=== PATIENT | female | born 1965 | race African-American/Black ===

== ENCOUNTER 2017-02-06 09:57 | Day surgery (SDC) | payer OTHER ==
[2017-02-06] MEDS ORDERED: Lidocaine 2% 5 ML SDV ONE (12:01)
[2017-02-06] MEDS ORDERED: Ropivacaine 0.5% 5 MG/ML 30 ML SDV ONE (12:01)
[2017-02-06] MEDS ORDERED: Betamethasone Acetate/Betamethasone Sod Phosphate 30 MG/5 ML MDV ONE (12:01)
[2017-02-06] MEDS ORDERED: Iopamidol 408 MG/ML 50 ML SDV ONE (12:02)
--- NOTE | 2017-02-06 17:53 | OR ---
SURGEON: Angelica Porter D.O. DATE OF PROCEDURE: 02/06/2017 OR STAFF: 1. Radha Gonzales RN. 2. Airel Park RN. 3. Mario Blankenship RT. WOUND CLASSIFICATION: I. PREOPERATIVE DIAGNOSES: 1. Chronic low back pain. 2. Degenerative disk disease. 3. Lumbar spondylosis. POSTOPERATIVE DIAGNOSES: 1. Chronic low back pain. 2. Degenerative disk disease. 3. Lumbar spondylosis. PROCEDURE PERFORMED: 1. Caudal epidural steroid injection. 2. Fluoroscopic guidance for needle placement. 3. Local with oral Valium for sedation. SCREENING QUESTIONS: The patient answered "no" to all of the following questions: 1. Are you allergic to latex? 2. Do you have a bleeding disorder? 3. Do you have any current local or systemic infections? 4. Are you taking any anti-inflammatories or blood thinners? 5. Do you have any joint replacements, heart valve replacements, or a pacemaker? DESCRIPTION OF PROCEDURE: The patient had the procedure thoroughly explained including all possible risks, benefits and alternatives. Consent was signed in my clinic indicating understanding and willingness to proceed. The patient presented to [facility] and was escorted to the dressing room to disrobe and change into a hospital gown. Preoperative vital signs were taken and stable. The patient reported that Valium was taken prior to the procedure. The patient was brought back to the procedure room and placed in the prone position on the procedure room table. A pillow was placed under the hips in order to flatten the lumbar lordosis. The back was prepped with ChloraPrep and sterilely draped. All personnel in the operating room were dressed in appropriate attire including surgical scrubs, head and shoe covers. This was to ensure sterility while in the treatment room. During the time fluoroscopy was in use, all personnel in the operating room wore lead powell with thyroid collars. Sterile technique was used throughout the procedure. The patient was awake and conversant throughout the procedure. There was no evidence of infection at the site of needle insertion. Skeletal landmarks were identified under fluoroscopy for the caudal epidural. Skin was anesthetized with 2% lidocaine with a sterile 27-gauge 1.5 inch needle. Then a 20-gauge Tuohy epidural needle was placed in the epidural space with loss of resistance technique under fluoroscopic guidance. No heme, cerebrospinal fluid, or paresthesias were noted. Isovue-200 contrast dye was injected in 0.2 cubic centimeter increments and seen to outline the epidural space in both AP and lateral views. There was no intravascular flow pattern observed under live fluoroscopy. Then 12 milligrams of Celestone was slowly injected after negative aspiration. The patient tolerated the procedure well. Vital signs were stable during and after the procedure. The staff escorted the patient to the recovery area and the patient was released in stable condition after a brief stay in the recovery room monitored by the nurse. The patient was given both oral and written discharge and follow up instructions with recommendation to follow up given for 2-3 weeks. The patient voiced understanding including understanding of those signs and symptoms that would require emergency care. The patient knows how to contact the office if there are any additional problems or questions in the meantime. PREOPERATIVE PAIN: 3 to 8/10 , at rest versus doing activities POSTOPERATIVE PAIN: 0/10. FOLLOWUP: Follow up in the pain clinic in 3 weeks. RON / SJ /[id number] ARIELA
== END 2017-02-06 13:00 | disposition home or self-care (01) ==
LOC: MW.SDS 09:57
PROVIDERS: ATTEND Anesthesiology
DX: G89.4 Chronic pain syndrome (principal); M47.896 Other spondylosis, lumbar region; M51.26 Other intervertebral disc displacement, lumbar region; M46.1 Sacroiliitis, not elsewhere classified; E78.00 Pure hypercholesterolemia, unspecified; M17.0 Bilateral primary osteoarthritis of knee; E11.42 Type 2 diabetes mellitus with diabetic polyneuropathy; I10 Essential (primary) hypertension; Z79.84 Long term (current) use of oral hypoglycemic drugs; Z79.899 Other long term (current) drug therapy; Z90.89 Acquired absence of other organs; Z98.890 Other specified postprocedural states
CPT/HCPCS: 62323; J0702; J2795; Q9966

== ENCOUNTER 2018-11-17 06:36 | Inpatient (IN) | payer OTHER ==
[~2018-11-17 06:36] MED LIST: Acetaminophen 1,000 MG in Premix Bag 1 BAG IV SCH; Famotidine 20 MG/2 ML SDV IVPUSH SCH; Ketorolac 30 MG/ML SDV IVPUSH SCH; Ropivacaine 49.25 ML, Ketorolac 30 MG, EPINEPHrine 0.5 MG, cloNIDine 80 MCG in Sodium C... INJECT SCH; Scopolamine 1.5 MG Transdermal Patch TRDERM SCH
[2018-11-17] MEDS ORDERED: Scopolamine 1.5 MG Transdermal Patch ONE (06:43)
[2018-11-17] MEDS ORDERED: Famotidine 20 MG/2 ML SDV ONE (06:44)
[2018-11-17] MEDS ORDERED: Ketorolac 30 MG/ML SDV ONE (06:45)
[2018-11-17] MEDS ORDERED: Midazolam 1 MG/ML 2 ML SDV ONE (06:49)
[2018-11-17] MEDS ORDERED: fentaNYL 100 MCG/2 ML SDV ONE (06:49)
[2018-11-17] MEDS ORDERED: Propofol 200 MG/20 ML SDV ONE ×2 (06:49→09:19)
[2018-11-17] MEDS ORDERED: ceFAZolin/Dextrose,Iso-Osmotic 2 GM/50 ML Duplex Bag IV ONE (06:56)
--- NOTE | 2018-11-17 07:02 | PCM.PREANE ---
Preanesthetic Assessment - Anesthesia/Transfusion/Family Hx Anesthesia History: Prior Anesthesia Without Reaction Family History of Anesthesia Reaction: No Transfusion History: No Prior Transfusion(s) Intubation History: Unknown - Review of Systems General: No Symptoms Pulmonary: No Symptoms Cardiovascular: No Symptoms Gastrointestinal: No Symptoms Neurological: No Symptoms Other: Reports: None - Physical Assessment Height: 5 ft 4 in Weight: 84.822 kg ASA Class: 3 Mental Status: Alert & Oriented x3 Airway Class: Mallampati = 2 Dentition: Reports: Normal Dentition, Woodlynne(s) (gold crown upper front (left)) Thyro-Mental Finger Breadths: 3 Mouth Opening Finger Breadths: 3 ROM/Head Extension: Full Lungs: Clear to Auscultation, Normal Respiratory Effort Cardiovascular: Regular Rate, Regular Rhythm - Allergies Allergies/Adverse Reactions: Allergies Allergy/AdvReac Type Severity Reaction Status Date / Time No Known Allergies Allergy Verified 11/10/18 10:46 - Blood Blood Available: No - Anesthesia Plan Pre-Op Medication Ordered: None - Acknowledgements Anesthesia Type Planned: Spinal (general anesthesia back-up plan) Pt an Appropriate Candidate for the Planned Anesthesia: Yes Alternatives and Risks of Anesthesia Discussed w Pt/Guardian: Yes Pt/Guardian Understands and Agrees with Anesthesia Plan: Yes PreAnesthesia Questionnaire HEENT History: Reports: Other (See Below) Other HEENT History: wears glasses Cardiovascular History: Reports: High Cholesterol, Hypertension Respiratory History: Reports: None Gastrointestinal History: Reports: None Genitourinary History: Reports: None MEDICATION TECHNICIAN History: Reports: Musculoskeletal History: Reports: Osteoarthritis Neurological History: Reports: None Psychiatric History: Reports: None Endocrine/Metabolic History: Reports: Diabetes, Type II, Obesity/BMI 30+ Hematologic History: Reports: None Immunologic History: Reports: None Oncologic (Cancer) History: Reports: None Dermatologic History: Reports: None - Past Surgical History Head Surgeries/Procedures: Reports: None HEENT Surgical History: Reports: Tonsillectomy Cardiovascular Surgical History: Reports: None Respiratory Surgical History: Reports: None GI Surgical History: Reports: Bariatric Procedure Other GI Surgeries/Procedures: gastric banding for weight loss, Female Surgical History: Reports: Section, Tubal Ligation Endocrine Surgical History: Reports: None Neurological Surgical History: Reports: None Musculoskeletal Surgical History: Reports: Shoulder Surgery, Other (See Below) Other Musculoskeletal Surgeries/Procedures:: rt shoulder surgery, rt foot bunionectomy Oncologic Surgical History: Reports: None Dermatological Surgical History: Reports: None - SUBSTANCE USE Smoking Status *Q: Never Smoker Recreational Drug Use History: No - HOME MEDS Home Medications: Home Meds Alogliptin Benzoate [Alogliptin] 12.5 mg PO DAILY 11/10/18 [History] Cyanocobalamin (Vitamin B-12) [Vitamin B-12] 1,000 mcg PO DAILY 11/10/18 [ History] Folic Acid 2.5 tab PO DAILY 11/10/18 [History] Glimepiride [Amaryl] 2 tab PO DAILY 11/10/18 [History] Lisinopril 10 mg PO DAILY 11/10/18 [History] Methocarbamol 750 mg PO ASDIRECTED PRN 11/10/18 [History] Oxybutynin 5 mg PO ASDIRECTED PRN 11/10/18 [History] Vitamin B6-pyridOXINE 25 mg PO DAILY 11/10/18 [History] atorvaSTATin Calcium [Atorvastatin Calcium] 10 mg PO BEDTIME 11/10/18 [History] metFORMIN HCl [Metformin HCl] 1,000 mg PO BID 11/10/18 [History] - CURRENT (IN HOUSE) MEDS Current Meds: Current Medications Famotidine (Pepcid) 40 mg IVPUSH ONARRIVE [place] Acetaminophen 1,000 mg/ Premix 100 mls @ 400 mls/hr IV ONARRIVE [place] Cefazolin Sodium/Dextrose 2 gm (/ Premix) 50 mls @ 100 mls/hr IV ONCALL [place] Ropivacaine 49.25 ml/Ketorolac Tromethamine 30 mg/Epinephrine HCl 0.5 mg/ Clonidine HCl 80 mcg/ Sodium Chloride 75 mls @ 50 mls/sec INJECT ASDIRECTED D[place] Lactated Ringer's (Ringers, Lactated) 1,000 mls @ 100 mls/hr IV ASDIRECTED [place] Tranexamic Acid 2,000 mg/ (Sodium Chloride) 120 mls @ 600 mls/hr IV ASDIRECTED ONE Stop: 11/17/18 08:11 Ketorolac Tromethamine (Toradol) 30 mg IVPUSH ONARRIVE [place] Scopolamine (Transderm-Scop) 1.5 mg TRDERM ONARRIVE [place] Discontinued Medications Cefazolin Sodium/Dextrose (Ancef) Confirm Administered Dose 2 gm IV .STK-MED ONE Stop: 11/17/18 06:57 Famotidine (Pepcid) Confirm Administered Dose 40 mg .ROUTE .STK-MED ONE Stop: 11/17/18 06:45 Fentanyl (Sublimaze) Confirm Administered Dose 100 mcg .ROUTE .STK-MED ONE Stop: 11/17/18 06:50 Acetaminophen (Ofirmev) Confirm Administered Dose 100 mls @ as directed IV .STK- MED ONE Stop: 11/17/18 06:43 Ketorolac Tromethamine (Toradol) Confirm Administered Dose 30 mg .ROUTE .STK- MED ONE Stop: 11/17/18 06:46 Midazolam HCl (Versed 1 Mg/Ml) Confirm Administered Dose 4 mg .ROUTE .STK-MED ONE Stop: 11/17/18 06:50 Propofol (Diprivan 20 Ml) Confirm Administered Dose 600 mg .ROUTE .STK-MED ONE Stop: 11/17/18 06:50 Scopolamine (Transderm-Scop) Confirm Administered Dose 1.5 mg .ROUTE .STK-MED ONE Stop: 11/17/18 06:44 Tranexamic Acid (Cyklokapron) Confirm Administered Dose 2,000 mg .ROUTE .STK- MED ONE Stop: 11/17/18 06:59
[2018-11-17] MEDS ORDERED: Lidocaine 1% 0 ML ONE (07:19)
[2018-11-17] MEDS ORDERED: Bupivacaine 0.5% 10 ML SDV ONE (07:19)
[2018-11-17] MEDS: Lactated Ringers 1,000 ML IV SCH ×3 (07:20→15:02)
[2018-11-17] MEDS ORDERED: Tranexamic Acid 2,000 MG in Sodium Chloride 0.9% 100 ML IV ONE (08:00)
[2018-11-17] MEDS ORDERED: ceFAZolin 2 GM in Premix Bag 1 BAG IV SCH (08:00)
[2018-11-17] MEDS ORDERED: Phenylephrine/Normal Saline 100 MCG/ML 10 ML Syringe ONE (09:20)
[2018-11-17] MEDS ORDERED: Aluminum Hydroxide/Magnesium Hydroxide/Simethicone Susp 30 ML Cup PO PRN (09:31)
[2018-11-17] MEDS ORDERED: Ondansetron 4 MG/2 ML SDV IVPUSH PRN (09:31)
[2018-11-17] MEDS ORDERED: Sodium Chloride 0.9% 10 ML Syringe FLUSH PRN (09:31)
[2018-11-17] MEDS ORDERED: Bisacodyl 10 MG Supp RECTAL PRN (09:31)
[2018-11-17] MEDS ORDERED: Docusate Sodium 100 MG Cap PO PRN (09:31)
[2018-11-17] MEDS ORDERED: diphenhydrAMINE 25 MG Cap PO PRN (09:31)
[2018-11-17] MEDS ORDERED: Sodium Chloride 0.9% 2.5 ML Syringe FLUSH PRN (09:31)
[2018-11-17] MEDS ORDERED: Morphine 4 MG/ML Syringe IVPUSH PRN (09:40)
--- NOTE | 2018-11-17 09:53 | PCM.OPNOTE ---
- General Post-Op/Procedure Note Date of Surgery/Procedure: 11/17/18 Operative Procedure(s): L TKA Post-Op Diagnosis: DJD left knee Anesthesia Technique: Moderate Sedation, Spinal Primary Surgeon: Lizett Mcelroy Vp Marketing: Lisette Muhammad Vp Marketing: Selam Head EBL in mLs: 50 Condition: Good Free Text/Narrative:: tt=49 min #[id number]
--- NOTE | 2018-11-17 10:31 | PCM.POSTAN ---
POST ANESTHESIA ASSESSMENT - MENTAL STATUS Mental Status: Alert - VITAL SIGNS Pulse Rate: 66 SaO2: 98 Resp Rate: 16 Blood Pressure: 108/55 - RESPIRATORY Respiratory Status: Respiratory Rate WNL - CARDIOVASCULAR CV Status: Pulse Rate WNL - GASTROINTESTINAL GI Status: No Symptoms - PAIN Pain Score: 0 - POST OP HYDRATION Hydration Status: Adequate & Stable (Doing well ready for transfer.)
--- NOTE | 2018-11-17 10:49 | OR ---
SURGEON: Lizett Mcelroy MD DATE OF PROCEDURE: 11/17/2018 PREOPERATIVE DIAGNOSIS: Degenerative joint disease, left knee, tricompartmental. POSTOPERATIVE DIAGNOSIS: Degenerative joint disease, left knee, tricompartmental. PROCEDURE: Left total knee arthroplasty using patient specific instrumentation. PRIMARY SURGEON: Lizett Mcelroy MD. ASSISTANTS: Lisette Muhammad PA-C and LANA Valenzuela. REASON AND ROLE FOR SOFT SUGAR SUPERVISOR: Retraction, prepping, draping, positioning, and closure assistance. ANESTHESIA: Spinal with sedation. ESTIMATED BLOOD LOSS: 50 mL. TOURNIQUET TIME: 49 minutes. COMPLICATIONS: None. DVT PROPHYLAXIS: PAS boot and MICHELLE hose to the nonoperative leg. IMPLANTS USED: Carlie Persona femoral component size 7 standard (LPS), tibial component size E, 11 mm all-polyethylene articular surface, and 32 mm all-polyethylene patella. INTRAOPERATIVE FINDINGS: Showed severe tricompartmental degenerative changes with valgus deformity. Osteophyte formation was noted in all 3 compartments. No significant synovitis was found. BRIEF HISTORY: Lauren is a 53-year-old female who has had complaint of progressive bilateral knee pain, left greater than right. She was found to have a valgus deformity of the left knee. Due to her lack of response to conservative treatment, I did recommend surgical intervention. The risks and goals of the procedure were discussed with the patient and were documented preoperatively. She agreed to proceed. DESCRIPTION OF PROCEDURE: The patient was properly identified and brought to the operating room. The patient was then transferred from the operating room cart and placed on the operating table in a supine position. Anesthesia was administered by the anesthesia staff. After adequate anesthesia was obtained, a well-padded tourniquet was applied to the surgical lower extremity. Holland catheter was placed. The lower extremity was then prepped in standard fashion using ChloraPrep solution. It was then sterilely draped. A time-out was performed to ensure correct site and procedure. Preoperative antibiotics were given along with one gram of tranexamic acid IV. The surgical site had been marked preoperatively. An Esmarch was used to exsanguinate the right lower extremity and the tourniquet was inflated. An incision was made over the anterior aspect of the knee. The subcutaneous tissues were dissected down to the level of the fascia. A medial parapatellar approach to the knee was made. A portion of the infrapatellar fat pad was then excised. The distal femur was then exposed. The femoral patient-specific cutting guide was then placed. Pins were also placed. The distal femoral cutting block was placed and the distal femoral cut was made. Instrumentation was then removed. Both Whitesides' line and the epicondylar axis were then marked with electrocautery. The 4-in-1 cutting block was placed. This was placed in a slightly externally rotated position, which corresponded well with the previously drawn lines. The cutting guide was then pinned into position. An Felix wing guide was used to check the depth of resection of our anterior condylar cut and it was felt that no notching would occur. The anterior condylar cut was then made followed by the posterior condylar cut. Both the posterior chamfer and anterior chamfer cuts were then made. The cutting block was then removed along with the excess bony remnants. We then turned our attention to the tibia. The anterior cruciate ligament and posterior cruciate ligament were released and a posterior cruciate ligament retractor was placed to allow the tibia to be pulled anteriorly. The tibial patient-specific guide was then placed on the proximal tibia. This fit anatomically. The pins were then placed. The proximal tibia cutting guide was then placed and screwed into position. The proximal tibial resection was then made with care being taken to protect the patellar tendon. The bony resection was then removed. The remainder of the medial and lateral meniscus were then excised. Care was taken to protect the popliteus tendon. The tibia was then sized to the appropriate size. The distal femur was then elevated. The posterior capsule was stripped off the distal femur both medially and laterally. The posterior capsule along with the medial and lateral gutters were then injected with a standard mixture consisting of clonidine, epinephrine, Toradol, and Ropivacaine, unless any allergies were found preoperatively. The femoral component was then placed onto the distal femur in a slightly lateral position. This fit the femur well. A box cut was then made without difficulty. This was then removed. The tibial trial along with the polyethylene liner was then placed. The knee came easily into full extension and was stable to varus and valgus stressing both in full extension and flexion. Any additional releases were performed at this time. We then returned our attention to the patella. The patella was everted and towel clamps were used to hold the patella in position. It was resected to a 15 millimeter thickness. It was then sized to the appropriate size. It was prepared in the usual fashion after placing the predetermined size clamps. This was placed in a slightly superior and medial position. The clamp was then removed. The patellar trial button was placed. The knee was taken through a range of motion using the no-touch technique. The patella tracked centrally. A drop jin was then placed to check alignment. All instruments were then removed from the knee. The tibial sizer was then placed on the tibia. The tibia was prepared in the usual fashion using the reamer and broach. This was then removed. All bony surfaces were copiously irrigated with Pulsavac solution. They were then suctioned dry. Cement was prepared on the back table in the usual manner. Once it was prepared, the bone ends were again suctioned dry. The tibia was cemented into place first. This was malleted into position. Excess cement was then cleared. The femur was then placed in a similar manner. We placed the polyethylene trial into place and the knee was brought into full extension. An axial load was placed while keeping the knee in full extension. The patella button was also cemented into position and the clamp was used to hold this in place as the cement was allowed to cure. The wound was again copiously irrigated with saline solution using a Pulsavac plumber gasfitter. Following this 1 g of tranexamic acid was applied to the wound topically. After we had adequate curing of the cement, the knee was again taken through a range of motion. The size of the polyethylene was then determined. The polyethylene trial was then removed. The tibial tray was suctioned to make sure there was no remaining soft tissue or cement. Excess cement was cleared from around the edges of the prosthesis as well. The tourniquet was then deflated. We were able to observe for any excess bleeding and none was noted. Electrocautery was used to maintain hemostasis. An additional gram of tranexamic acid was given IV. The retractors were again placed and the predetermined polyethylene was then placed. This was locked into position without difficulty. The knee was again taken through a range of motion with no change from the prior exam. The fascial layer was closed with Number One Vicryl. The subcutaneous tissues were closed with 2-0 Vicryl. The skin was closed with robinson. Xeroform gauze was placed over the wound and a bulky dressing was applied. The patient was then awakened from anesthesia and transferred back to the operating room cart. They were brought to the recovery room in stable condition. All needle and sponge counts were correct. TOVA GUSTAFSON /[id number]
--- NOTE | 2018-11-17 11:17 | PCM.CONS ---
H&P History of Present Illness - General Date of Service: 11/17/18 Admit Problem/Dx: s/p LEFT TOTAL KNEE ARTHROPLASTY Source of Information: Patient, Old Records History Limitations: Reports: No Limitations - History of Present Illness Initial Comments - Free Text/Narative: This 53 year old female with pmh or HTN, HLD, DM Type 2 and chronic pain presented today for TKA with Dr Asya Mcelroy. Hospitalist service consulted for medical management of HTN and DM type 2. Lauren recently arrived to Med/SUrg unit from PACU. She is alert and oriented. She denies any pain currently, reports legs are numb still. Denies chest pain or SOB. She overall feels well. reports she was diagnosed about 1 year ago with Dm Type 2, and is well controlled on PO medications. Denies CAD, no chest pain or known NM or CVA. PCP, [facility] Dr Rolando Mcelroy - Related Data Allergies/Adverse Reactions: Allergies Allergy/AdvReac Type Severity Reaction Status Date / Time No Known Allergies Allergy Verified 11/17/18 07:48 Home Medications: Home Meds Alogliptin Benzoate [Alogliptin] 12.5 mg PO DAILY 11/10/18 [History] Cyanocobalamin (Vitamin B-12) [Vitamin B-12] 1,000 mcg PO DAILY 11/10/18 [ History] Folic Acid 2.5 tab PO DAILY 11/10/18 [History] Glimepiride [Amaryl] 2 tab PO DAILY 11/10/18 [History] Lisinopril 10 mg PO DAILY 11/10/18 [History] Methocarbamol 750 mg PO ASDIRECTED PRN 11/10/18 [History] Oxybutynin 5 mg PO ASDIRECTED PRN 11/10/18 [History] Vitamin B6-pyridOXINE 25 mg PO DAILY 11/10/18 [History] atorvaSTATin Calcium [Atorvastatin Calcium] 10 mg PO BEDTIME 11/10/18 [History] metFORMIN HCl [Metformin HCl] 1,000 mg PO BID 11/10/18 [History] Acetaminophen/oxyCODONE [Percocet 325-5 MG] 1 - 2 tab PO Q4H PRN #40 tablet 09/30 [Rx] Aspirin 325 mg PO BID #60 tablet 11/17/18 [Rx] Celecoxib [CeleBREX] 200 mg PO DAILY #30 cap 11/17/18 [Rx] Docusate Sodium [Colace] 100 mg PO BID PRN #60 cap 11/17/18 [Rx] Polyethylene Glycol 3350 [MiraLAX] 17 gm PO DAILY #600 gram 11/17/18 [Rx] cephALEXin [Keflex] 500 mg PO BID #14 cap 11/17/18 [Rx] Past Medical History HEENT History: Reports: Other (See Below) Other HEENT History: wears glasses Cardiovascular History: Reports: High Cholesterol, Hypertension. Denies: Afib, Blood Clots/VTE/DVT, CAD, NM Respiratory History: Reports: None. Denies: Asthma, COPD Gastrointestinal History: Reports: None Genitourinary History: Reports: None OXYGEN THERAPIST History: Reports: Musculoskeletal History: Reports: Osteoarthritis Neurological History: Reports: None. Denies: CVA, TIA Psychiatric History: Reports: None Endocrine/Metabolic History: Reports: Diabetes, Type II, Obesity/BMI 30+ Hematologic History: Reports: None Immunologic History: Reports: None Oncologic (Cancer) History: Reports: None Dermatologic History: Reports: None - Past Surgical History Head Surgeries/Procedures: Reports: None HEENT Surgical History: Reports: Tonsillectomy Cardiovascular Surgical History: Reports: None Respiratory Surgical History: Reports: None GI Surgical History: Reports: Bariatric Procedure Other GI Surgeries/Procedures: gastric banding for weight loss, Female Surgical History: Reports: Section, Tubal Ligation Endocrine Surgical History: Reports: None Neurological Surgical History: Reports: None Musculoskeletal Surgical History: Reports: Shoulder Surgery, Other (See Below) Other Musculoskeletal Surgeries/Procedures:: rt shoulder surgery, rt foot bunionectomy Oncologic Surgical History: Reports: None Dermatological Surgical History: Reports: None Social & Family History - Tobacco Use Smoking Status *Q: Never Smoker - Alcohol Use Alcohol Use History: No - Recreational Drug Use Recreational Drug Use: No Drug Use in Last 12 Months: No H&P Review of Systems - Review of Systems: Review Of Systems: See Below General: Reports: No Symptoms. Denies: Fever, Chills, Malaise HEENT: Reports: No Symptoms. Denies: Headaches, Sinus Congestion, Sore Throat Pulmonary: Reports: No Symptoms. Denies: Shortness of Breath Cardiovascular: Reports: No Symptoms. Denies: Chest Pain Gastrointestinal: Reports: No Symptoms. Denies: Abdominal Pain, Black Stool, Bloody Stool, Nausea, Vomiting Genitourinary: Reports: No Symptoms. Denies: Dysuria, Frequency, Burning Skin: Reports: No Symptoms Psychiatric: Reports: No Symptoms Neurological: Reports: No Symptoms Exam - Exam Exam: See Below - Vital Signs Vital Signs: Last Vital Signs Temp 96.8 F 11/17/18 10:55 Pulse 60 11/17/18 10:55 Resp 15 11/17/18 10:55 BP 114/66 11/17/18 10:55 Pulse Ox 98 11/17/18 10:55 Weight: 84.822 kg - Exam Quality Assessment: Supplemental Oxygen, Urinary Catheter, DVT Prophylaxis General: Alert, Oriented, Cooperative HEENT: Conjunctiva Clear, Mucosa Moist & [place], Posterior Pharynx Clear Lungs: Normal Respiratory Effort, Wheezing (scant to L upper lobe) Cardiovascular: Regular Rate, Regular Rhythm, Normal S1, Normal S2. No: Tachycardia, Systolic Murmur GI/Abdominal Exam: Normal Bowel Sounds, Soft, Non-Tender Back Exam: Normal Inspection, Full Range of Motion Extremities: Normal Inspection, Normal Range of Motion, Non-Tender, No Pedal Edema Neuro Extensive - Mental Status: Alert, Oriented x3 Neuro Extensive - Motor, Sensory, Reflexes: CN II-XII Intact Psychiatric: Alert, Normal Affect, Normal Mood - Patient Data Lab Results Last 24 hrs: Laboratory Results - last 24 hr 11/17/18 11/17/18 Range/Units 07:15 10:47 WBC 12.01 H (4.0-11.0) K/uL RBC 4.23 L (4.30-5.90) M/uL Hgb 12.3 (12.0-16.0) g/dL Hct 37.0 (36.0-46.0) % MCV 87.5 (80.0-98.0) fL MCH 29.1 (27.0-32.0) pg MCHC 33.2 (31.0-37.0) g/dL RDW Std Deviation 50.1 (28.0-62.0) fl RDW Coeff of Daylin 16 H (11.0-15.0) % Plt Count 181 (150-400) K/uL MPV 9.40 (7.40-12.00) fL Neut % (Auto) 63.3 (48.0-80.0) % Lymph % (Auto) 29.2 (16.0-40.0) % [place]illiam % (Auto) 6.2 (0.0-15.0) % Eos % (Auto) 1.1 (0.0-7.0) % Baso % (Auto) 0.2 (0.0-1.5) % Neut # (Auto) 7.6 H (1.4-5.7) K/uL Lymph # (Auto) 3.5 H (0.6-2.4) K/uL Gilliam # (Auto) 0.7 (0.0-0.8) K/uL Eos # (Auto) 0.1 (0.0-0.7) K/uL Baso # (Auto) 0.0 (0.0-0.1) K/uL Nucleated RBC % 0.0 /100WBC Nucleated RBCs # 0 K/uL Blood Type A POSITIVE Antibody Screen NEGATIVE Result Diagrams: 11/17/18 10:47 11/17/18 10:47 Consult PN Assessment/Plan Procedures: Procedures MRI JNT OF LWR EXTRE W/O DYE (08/06/18) NJX INTERLAMINAR LMBR/SAC (02/06/17) X-RAY BEND ONLY L-S SPINE (12/17/16) X-RAY EXAM CHEST 2 VIEWS (11/09/18) X-RAY EXAM KNEE 4 OR MORE (02/03/18) X-RAY EXAM OF KNEE 1 OR 2 (03/12/16) X-RAY EXAM OF SHOULDER (02/13/16) (1) S/P total knee arthroplasty SNOMED Code(s): 1187459399208, 258005320, 3124267621130 Code(s): Z96.659 - PRESENCE OF UNSPECIFIED ARTIFICIAL KNEE JOINT Current Visit: Yes Qualifiers: Laterality: left Qualified Code(s): Z96.652 - Presence of left artificial knee joint (2) HTN (hypertension) SNOMED Code(s): 68000493 Code(s): I10 - ESSENTIAL (PRIMARY) HYPERTENSION Current Visit: Yes Qualifiers: Hypertension type: essential hypertension Qualified Code(s): I10 - Essential (primary) hypertension (3) HLD (hyperlipidemia) SNOMED Code(s): 78119636 Code(s): E78.5 - HYPERLIPIDEMIA, UNSPECIFIED Current Visit: Yes (4) DM type 2 (diabetes mellitus, type 2) SNOMED Code(s): 41251917 Code(s): E11.9 - TYPE 2 DIABETES MELLITUS WITHOUT COMPLICATIONS Current Visit: Yes Qualifiers: Diabetes mellitus jail insulin use: without jail use Diabetes mellitus complication status: without complication Qualified Code(s): E11.9 - Type 2 diabetes mellitus without complications Problem List Initiated/Reviewed/Updated: Yes My Orders Last 24 Hours: My Active Orders 11/17/18 10:08 Blood Glucose Check, Bedside [RC] TIDAC 11/17/18 10:47 BASIC METABOLIC PANEL,BMP [CHEM] Routine MG [MAGNESIUM] [CHEM] Routine 11/17/18 11:30 Insulin Aspart [NovoLOG] See Protocol SUBCUT TIDA 11/17/18 21:00 atorvaSTATin [Lipitor] 10 mg PO BEDTIME 11/18/18 09:00 Cyanocobalamin (Vitamin B12) [Vitamin B12] 1,000 mcg PO DAILY Folic Acid 2.5 mg PO DAILY Lisinopril [Prinivil] 10 mg PO DAILY Vitamin B6-pyridOXINE 25 mg PO DAILY Plan: This 53 year old female admitted with L TKA with Dr Alphonse Mcelroy. Hospitalist service consulted for medical management of HTN and DM type 2 1. S/P L TKA: Orders per Orthopedics 2. HTN: Stable, monitor BMP. Continue Lisinopril. 3. DM Type 2: Hold PO medications. Well controlled, Novolog SSI with meals. Upon discharge, continue home oral regimen 4. Hx gastric bypass: Stable, continue multivitamins. Mg 1.5, will supplement with 2 gm IV today and check in am. VTE prophylaxis: Recommend when Orthopedics deems appropriate.
[2018-11-17 11:30] LABS: BLOOD UREA NITROGEN,BUN 9 mg/dL (7.0-18.0); CHLORIDE,CL 108 mmol/L (98-107); GLUCOSE RANDOM 122 mg/dL (74-106); POTASSIUM,K 4.2 mmol/L (3.5-5.1); SODIUM,NA 144 mmol/L (136-145)
--- NOTE | 2018-11-17 11:31 | PCM48HPAN ---
Post Anesthesia Note - EVALUATION WITHIN 48HRS OF ANESTHETIC Vital Signs in Normal Range: Yes Patient Participated in Evaluation: Yes Respiratory Function Stable: Yes Airway Patent: Yes Cardiovascular Function Stable: Yes Hydration Status Stable: Yes Pain Control Satisfactory: Yes Nausea and Vomiting Control Satisfactory: Yes Mental Status Recovered: Yes
[2018-11-17] MEDS: Insulin Aspart 100 Units/ML 3 ML Pen SUBCUT SCH ×2 (11:38→17:08)
[2018-11-17] MEDS ORDERED: Magnesium Sulfate/Water 2 GM in Premix Bag 1 BAG IV ONE (11:41)
[2018-11-17] MEDS: Ketorolac 30 MG/ML SDV IVPUSH SCH ×2 (13:07→20:17)
[2018-11-17] MEDS: Acetaminophen 1,000 MG in Premix Bag 1 BAG IV SCH ×2 (13:12→18:03)
[2018-11-17] MEDS: oxyCODONE 5 MG Tab PO PRN ×2 (13:12→17:07)
[2018-11-17] MEDS: ceFAZolin 2 GM in Premix Bag 1 BAG IV SCH ×2 (15:03→23:27)
--- NOTE | 2018-11-17 17:14 | CR ---
COMPARISON: None available. FINDINGS: Portable AP and cross-table lateral views of the left knee demonstrate postsurgical changes from total knee arthroplasty. The components appear intact without evidence of fracture. Air and fluid are noted in the joint space and surrounding soft tissues. Anterior skin robinson are in place. IMPRESSION: Expected postoperative changes following left knee total arthroplasty. No radiographic evidence of complication. Dictated by Joe Madera MD @ Nov 17 2018 5:12PM Signed by Dr. Joe Madera @ Nov 17 2018 5:13PM
[2018-11-17] MEDS: atorvaSTATin 10 MG Tab PO SCH (20:07)
[2018-11-18] MEDS: Acetaminophen 1,000 MG in Premix Bag 1 BAG IV SCH (01:32)
[2018-11-18] MEDS: Ketorolac 30 MG/ML SDV IVPUSH SCH (01:34)
[2018-11-18 06:22] LABS: BLOOD UREA NITROGEN,BUN 9 mg/dL (7.0-18.0); CARBON DIOXIDE,CO2 24.6 mmol/L (21.0-32.0); CHLORIDE,CL 107 mmol/L (98-107); GLUCOSE RANDOM 205 mg/dL (74-106); POTASSIUM,K 4.2 mmol/L (3.5-5.1); SODIUM,NA 141 mmol/L (136-145)
[2018-11-18] MEDS: Acetaminophen/oxyCODONE 325-5 MG Tab PO PRN ×4 (08:07→22:43)
[2018-11-18] MEDS: Insulin Aspart 100 Units/ML 3 ML Pen SUBCUT SCH ×3 (08:09→17:40)
[2018-11-18] MEDS: Cephalexin 500 MG Cap PO SCH ×2 (08:10→20:00)
[2018-11-18] MEDS: Famotidine 20 MG Tab PO SCH (08:10)
[2018-11-18] MEDS: Lisinopril 10 MG Tab PO SCH (08:10)
[2018-11-18] MEDS: Aspirin 325 MG Tab PO SCH ×2 (08:10→20:00)
[2018-11-18] MEDS: Cyanocobalamin (Vitamin B12) 500 MCG Tab PO SCH (08:10)
[2018-11-18] MEDS: Folic Acid 1 MG Tab PO SCH (08:11)
[2018-11-18] MEDS: Celecoxib 100 MG Cap PO SCH ×2 (08:11→20:01)
[2018-11-18] MEDS: Polyethylene Glycol 3350 Powder 17 GM Packet PO SCH (08:11)
[2018-11-18] MEDS: Vitamin B6-pyridOXINE 50 MG Tab PO SCH (08:12)
--- NOTE | 2018-11-18 08:18 | PCM.CONSN ---
- General Info Date of Service: 11/18/18 Admission Dx/Problem (Free Text): s/p LEFT TOTAL KNEE ARTHROPLASTY Subjective Update: Sitting in chair this morning, reports pain to L thigh. Otherwise no other complaints. No chest pain or SOB. Functional Status: Reports: Tolerating Diet - Review of Systems General: Reports: No Symptoms. Denies: Weakness, Fatigue HEENT: Reports: No Symptoms. Denies: Headaches, Sore Throat, Visual Changes Pulmonary: Reports: No Symptoms. Denies: Shortness of Breath Cardiovascular: Reports: No Symptoms. Denies: Chest Pain Gastrointestinal: Reports: No Symptoms. Denies: Abdominal Pain, Nausea, Vomiting Genitourinary: Reports: No Symptoms Musculoskeletal: Reports: Leg Pain (L thigh) Skin: Reports: No Symptoms Neurological: Reports: No Symptoms Psychiatric: Reports: No Symptoms - Patient Data Vitals - Most Recent: Last Vital Signs Temp 97.5 F 11/18/18 07:49 Pulse 66 11/18/18 07:49 Resp 16 11/18/18 07:49 BP 121/67 11/18/18 08:10 Pulse Ox 99 11/18/18 07:49 Weight - Most Recent: 84.822 kg I&O - Last 24 Hours: Intake & Output 11/17/18 11/18/18 11/18/18 22:59 06:59 14:59 Intake Total 844 1770 Output Total 1300 3100 Balance -456 -1330 Lab Results Last 24 Hours: Laboratory Results - last 24 hr 11/17/18 11/17/18 11/17/18 Range/Units 10:47 10:47 11:36 WBC 12.01 H (4.0-11.0) K/uL RBC 4.23 L (4.30-5.90) M/uL Hgb 12.3 (12.0-16.0) g/dL Hct 37.0 (36.0-46.0) % MCV 87.5 (80.0-98.0) fL MCH 29.1 (27.0-32.0) pg MCHC 33.2 (31.0-37.0) g/dL RDW Std Deviation 50.1 (28.0-62.0) fl RDW Coeff of Daylni 16 H (11.0-15.0) % Plt Count 181 (150-400) K/uL MPV 9.40 (7.40-12.00) fL Neut % (Auto) 63.3 (48.0-80.0) % Lymph % (Auto) 29.2 (16.0-40.0) % [place] % (Auto) 6.2 (0.0-15.0) % Eos % (Auto) 1.1 (0.0-7.0) % Baso % (Auto) 0.2 (0.0-1.5) % Neut # (Auto) 7.6 H (1.4-5.7) K/uL Lymph # (Auto) 3.5 H (0.6-2.4) K/uL [place] # (Auto) 0.7 (0.0-0.8) K/uL Eos # (Auto) 0.1 (0.0-0.7) K/uL Baso # (Auto) 0.0 (0.0-0.1) K/uL Nucleated RBC % 0.0 /100WBC Nucleated RBCs # 0 K/uL Sodium 144 (136-145) mmol/L Potassium 4.2 (3.5-5.1) mmol/L Chloride 108 H (98-107) mmol/L Carbon Dioxide 22.0 (21.0-32.0) mmol/L BUN 9 (7.0-18.0) mg/dL Creatinine 0.6 (0.6-1.0) mg/dL Est Cr Clr Drug Dosing 93.64 mL/min Estimated GFR (MDRD) > 60.0 ml/min Glucose 122 H (74-106) mg/dL POC Glucose 151 H (60-110) mg/dL Calcium 9.1 (8.5-10.1) mg/dL Magnesium 1.5 L (1.8-2.4) mg/dL 11/17/18 11/17/18 11/18/18 Range/Units 16:39 21:13 05:30 WBC (4.0-11.0) K/uL RBC (4.30-5.90) M/uL Hgb 11.5 L (12.0-16.0) g/dL Hct 35.1 L (36.0-46.0) % MCV (80.0-98.0) fL MCH (27.0-32.0) pg MCHC (31.0-37.0) g/dL RDW Std Deviation (28.0-62.0) fl RDW Coeff of Daylin (11.0-15.0) % Plt Count (150-400) K/uL MPV (7.40-12.00) fL Neut % (Auto) (48.0-80.0) % Lymph % (Auto) (16.0-40.0) % [place] % (Auto) (0.0-15.0) % Eos % (Auto) (0.0-7.0) % Baso % (Auto) (0.0-1.5) % Neut # (Auto) (1.4-5.7) K/uL Lymph # (Auto) (0.6-2.4) K/uL [place] # (Auto) (0.0-0.8) K/uL Eos # (Auto) (0.0-0.7) K/uL Baso # (Auto) (0.0-0.1) K/uL Nucleated RBC % /100WBC Nucleated RBCs # K/uL Sodium (136-145) mmol/L Potassium (3.5-5.1) mmol/L Chloride (98-107) mmol/L Carbon Dioxide (21.0-32.0) mmol/L BUN (7.0-18.0) mg/dL Creatinine (0.6-1.0) mg/dL Est Cr Clr Drug Dosing mL/min Estimated GFR (MDRD) ml/min Glucose (74-106) mg/dL POC Glucose 203 H 235 H (60-110) mg/dL Calcium (8.5-10.1) mg/dL Magnesium (1.8-2.4) mg/dL 11/18/18 11/18/18 Range/Units 05:30 06:19 WBC (4.0-11.0) K/uL RBC (4.30-5.90) M/uL Hgb (12.0-16.0) g/dL Hct (36.0-46.0) % MCV (80.0-98.0) fL MCH (27.0-32.0) pg MCHC (31.0-37.0) g/dL RDW Std Deviation (28.0-62.0) fl RDW Coeff of Daylin (11.0-15.0) % Plt Count (150-400) K/uL MPV (7.40-12.00) fL Neut % (Auto) (48.0-80.0) % Lymph % (Auto) (16.0-40.0) % [place] % (Auto) (0.0-15.0) % Eos % (Auto) (0.0-7.0) % Baso % (Auto) (0.0-1.5) % Neut # (Auto) (1.4-5.7) K/uL Lymph # (Auto) (0.6-2.4) K/uL [place] # (Auto) (0.0-0.8) K/uL Eos # (Auto) (0.0-0.7) K/uL Baso # (Auto) (0.0-0.1) K/uL Nucleated RBC % /100WBC Nucleated RBCs # K/uL Sodium 141 (136-145) mmol/L Potassium 4.2 (3.5-5.1) mmol/L Chloride 107 (98-107) mmol/L Carbon Dioxide 24.6 (21.0-32.0) mmol/L BUN 9 (7.0-18.0) mg/dL Creatinine 0.6 (0.6-1.0) mg/dL Est Cr Clr Drug Dosing 93.64 mL/min Estimated GFR (MDRD) > 60.0 ml/min Glucose 205 H (74-106) mg/dL POC Glucose 200 H (60-110) mg/dL Calcium 9.1 (8.5-10.1) mg/dL Magnesium 1.8 (1.8-2.4) mg/dL Med Orders - Current: Current Medications Al Hydroxide/Mg Hydroxide (Mag-Al Plus) 30 ml PO Q4H PRN PRN Reason: Indigestion Aspirin (Aspirin) 325 mg PO BID [facility] Last Admin: 11/18/18 08:10 Dose: 325 mg Atorvastatin Calcium (Lipitor) 10 mg PO BEDTIME [facility] Last Admin: 11/17/18 20:07 Dose: 10 mg Bisacodyl (Dulcolax) 10 mg RECTAL DAILY PRN PRN Reason: Constipation Celecoxib (Celebrex) 200 mg PO BID [facility] Last Admin: 11/18/18 08:11 Dose: 200 mg Cephalexin (Keflex) 500 mg PO BID [facility] Stop: 11/25/18 09:01 Last Admin: 11/18/18 08:10 Dose: 500 mg Cyanocobalamin (Vitamin B12) 1,000 mcg PO DAILY [facility] Last Admin: 11/18/18 08:10 Dose: 1,000 mcg Diphenhydramine HCl (Benadryl) 25 - 50 mg PO Q6H PRN PRN Reason: Itching Docusate Sodium (Colace) 100 mg PO BID PRN PRN Reason: Constipation Famotidine (Pepcid) 40 mg IVPUSH ONARRIVE [facility] Last Admin: 11/17/18 07:20 Dose: 40 mg Famotidine (Pepcid) 40 mg PO DAILY [facility] Last Admin: 11/18/18 08:10 Dose: 40 mg Folic Acid (Folic Acid) 2.5 mg PO DAILY [facility] Last Admin: 11/18/18 08:11 Dose: 2.5 mg Acetaminophen 1,000 mg/ Premix 100 mls @ 400 mls/hr IV ONARRIVE [facility] Last Admin: 11/17/18 07:20 Dose: 400 mls/hr Cefazolin Sodium/Dextrose 2 gm (/ Premix) 50 mls @ 100 mls/hr IV ONCALL [facility] Ropivacaine 49.25 ml/Ketorolac Tromethamine 30 mg/Epinephrine HCl 0.5 mg/ Clonidine HCl 80 mcg/ Sodium Chloride 75 mls @ 50 mls/sec INJECT ASDIRECTED [facility] Lactated Ringer's (Ringers, Lactated) 1,000 mls @ 100 mls/hr IV ASDIRECTED [facility] Last Admin: 11/17/18 15:02 Dose: 100 mls/hr Insulin Aspart (Novolog) 0 unit SUBCUT TIDAC [facility]; Protocol Last Admin: 11/18/18 08:09 Dose: 2 units Ketorolac Tromethamine (Toradol) 30 mg IVPUSH ONARRIVE [facility] Last Admin: 11/17/18 20:14 Dose: 30 mg Lisinopril (Prinivil) 10 mg PO DAILY [facility] Last Admin: 11/18/18 08:10 Dose: 10 mg Morphine Sulfate (Morphine) 1 - 3 mg IVPUSH Q3H PRN PRN Reason: Pain Ondansetron HCl (Zofran) 4 mg IVPUSH Q6H PRN PRN Reason: Nausea/Vomiting Oxycodone/Acetaminophen (Percocet 325-5 Mg) 1 - 2 tab PO Q4H PRN PRN Reason: Pain Last Admin: 11/18/18 08:07 Dose: 2 tab Polyethylene Glycol (Miralax) 17 gm PO DAILY [facility] Last Admin: 11/18/18 08:11 Dose: 17 gm Pyridoxine HCl (Vitamin B6-Pyridoxine) 25 mg PO DAILY [facility] Last Admin: 11/18/18 08:12 Dose: 25 mg Scopolamine (Transderm-Scop) 1.5 mg TRDERM ONARRIVE [facility] Last Admin: 11/17/18 07:20 Dose: 1.5 mg Sodium Chloride (Saline Flush) 10 ml FLUSH ASDIRECTED PRN PRN Reason: Keep Vein Open Sodium Chloride (Saline Flush) 2.5 ml FLUSH ASDIRECTED PRN PRN Reason: Keep Vein Open Discontinued Medications Bupivacaine HCl (Sensorcaine-Mpf 0.5%) Confirm Administered Dose 10 ml .ROUTE .STK-MED ONE Stop: 11/17/18 07:20 Cefazolin Sodium/Dextrose (Ancef) Confirm Administered Dose 2 gm IV .STK-MED ONE Stop: 11/17/18 06:57 Famotidine (Pepcid) Confirm Administered Dose 40 mg .ROUTE .STK-MED ONE Stop: 11/17/18 06:45 Last Admin: 11/17/18 10:26 Dose: Not Given Fentanyl (Sublimaze) Confirm Administered Dose 100 mcg .ROUTE .STK-MED ONE Stop: 11/17/18 06:50 Tranexamic Acid 2,000 mg/ (Sodium Chloride) 120 mls @ 600 mls/hr IV ASDIRECTED ONE Stop: 11/17/18 08:11 Last Admin: 11/17/18 10:27 Dose: Not Given Acetaminophen (Ofirmev) Confirm Administered Dose 100 mls @ as directed IV .STK- MED ONE Stop: 11/17/18 06:43 Last Admin: 11/17/18 10:26 Dose: Not Given Lidocaine HCl (Xylocaine-Mpf 1%) Confirm Administered Dose 10 mls @ as directed .ROUTE .STK-MED ONE Stop: 11/17/18 07:20 Acetaminophen 1,000 mg/ Premix 100 mls @ 400 mls/hr IV Q6H [facility] Stop: 11/18/18 01:14 Last Admin: 11/18/18 01:32 Dose: 400 mls/hr Cefazolin Sodium/Dextrose 2 gm (/ Premix) 50 mls @ 100 mls/hr IV Q8H [facility] Stop: 11/18/18 00:29 Last Admin: 11/17/18 23:27 Dose: 100 mls/hr Magnesium Sulfate 2 gm/ Premix 50 mls @ 50 mls/hr IV ONETIME ONE Stop: 11/17/18 12:40 Last Admin: 11/17/18 11:51 Dose: 50 mls/hr Ketorolac Tromethamine (Toradol) Confirm Administered Dose 30 mg .ROUTE .STK- MED ONE Stop: 11/17/18 06:46 Last Admin: 11/17/18 10:27 Dose: Not Given Ketorolac Tromethamine (Toradol) 30 mg IVPUSH Q6H [facility] Stop: 11/18/18 05:00 Last Admin: 11/18/18 01:34 Dose: 30 mg Midazolam HCl (Versed 1 Mg/Ml) Confirm Administered Dose 4 mg .ROUTE .STK-MED ONE Stop: 11/17/18 06:50 Oxycodone HCl (Oxycodone) 5 - 10 mg PO Q4H PRN PRN Reason: Pain Stop: 11/18/18 08:00 Last Admin: 11/17/18 17:07 Dose: 10 mg Phenylephrine HCl (Phenylephrine In Ns 100 Mcg/Ml) Confirm Administered Dose 1 mg .ROUTE .STK-MED ONE Stop: 11/17/18 09:21 Propofol (Diprivan 20 Ml) Confirm Administered Dose 600 mg .ROUTE .STK-MED ONE Stop: 11/17/18 06:50 Propofol (Diprivan 20 Ml) Confirm Administered Dose 200 mg .ROUTE .STK-MED ONE Stop: 11/17/18 09:20 Scopolamine (Transderm-Scop) Confirm Administered Dose 1.5 mg .ROUTE .STK-MED ONE Stop: 11/17/18 06:44 Last Admin: 11/17/18 10:26 Dose: Not Given Tranexamic Acid (Cyklokapron) Confirm Administered Dose 2,000 mg .ROUTE .STK- MED ONE Stop: 11/17/18 06:59 - Exam General: Alert, Oriented, Cooperative Lungs: Clear to Auscultation, Normal Respiratory Effort Cardiovascular: Regular Rate, Regular Rhythm GI/Abdominal Exam: Normal Bowel Sounds, Soft, Non-Tender Extremities: Normal Inspection, Normal Range of Motion, Non-Tender, Pedal Edema (scant to L leg) Wound/Incisions: Dressing Dry and Intact (L knee) Neurological: No New Focal Deficit Psy/Mental Status: Alert, Normal Affect, Normal Mood Consult PN Assessment/Plan POD#: 1 Procedures: Procedures MRI JNT OF LWR EXTRE W/O DYE (08/06/18) NJX INTERLAMINAR LMBR/SAC (02/06/17) X-RAY BEND ONLY L-S SPINE (12/17/16) X-RAY EXAM CHEST 2 VIEWS (11/09/18) X-RAY EXAM KNEE 4 OR MORE (02/03/18) X-RAY EXAM OF KNEE 1 OR 2 (03/12/16) X-RAY EXAM OF SHOULDER (02/13/16) (1) S/P total knee arthroplasty SNOMED Code(s): 9949618341078, 655014849, 8244235504217 Code(s): Z96.659 - PRESENCE OF UNSPECIFIED ARTIFICIAL KNEE JOINT Current Visit: Yes Qualifiers: Laterality: left Qualified Code(s): Z96.652 - Presence of left artificial knee joint (2) HTN (hypertension) SNOMED Code(s): 15314793 Code(s): I10 - ESSENTIAL (PRIMARY) HYPERTENSION Current Visit: Yes Qualifiers: Hypertension type: essential hypertension Qualified Code(s): I10 - Essential (primary) hypertension (3) HLD (hyperlipidemia) SNOMED Code(s): 09801072 Code(s): E78.5 - HYPERLIPIDEMIA, UNSPECIFIED Current Visit: Yes (4) DM type 2 (diabetes mellitus, type 2) SNOMED Code(s): 80738954 Code(s): E11.9 - TYPE 2 DIABETES MELLITUS WITHOUT COMPLICATIONS Current Visit: Yes Qualifiers: Diabetes mellitus terminologist insulin use: without mcc use Diabetes mellitus complication status: without complication Qualified Code(s): E11.9 - Type 2 diabetes mellitus without complications Problem List Initiated/Reviewed/Updated: Yes My Orders Last 24 Hours: My Active Orders 11/17/18 10:08 Blood Glucose Check, Bedside [RC] TIDA 11/17/18 11:30 Insulin Aspart [NovoLOG] See Protocol SUBCUT TIDAC 11/17/18 21:00 atorvaSTATin [Lipitor] 10 mg PO BEDTIME 11/18/18 09:00 Cyanocobalamin (Vitamin B12) [Vitamin B12] 1,000 mcg PO DAILY Folic Acid 2.5 mg PO DAILY Lisinopril [Prinivil] 10 mg PO DAILY Vitamin B6-pyridOXINE 25 mg PO DAILY Plan: This 53 year old female admitted with L TKA with Dr Alphonse Mcelroy. Hospitalist service consulted for medical management of HTN and DM type 2 1. S/P L TKA: Orders per Orthopedics 2. HTN: Stable,BMP WNL. Continue Lisinopril. 3. DM Type 2: Hold PO medications. Well controlled, Novolog SSI with meals. Upon discharge, continue home oral regimen 4. Hx gastric bypass: Stable, continue multivitamins. Mg 1.8 after supplementing yesterday. Monitor. VTE prophylaxis: Recommend when Orthopedics deems appropriate.
--- NOTE | 2018-11-18 11:42 | PCM.SURGPN ---
- General Info Date of Service: 11/18/18 POD#: 1 Functional Status: Reports: Pain Controlled - Review of Systems General: Reports: No Symptoms HEENT: Reports: No Symptoms Pulmonary: Reports: No Symptoms Cardiovascular: Reports: No Symptoms Gastrointestinal: Reports: No Symptoms Neurological: Reports: No Symptoms Psychiatric: Reports: No Symptoms Systems Review Comment:: Patient doing well. Pain well controlled overnight. Was up with PT this am. No other complaints. - Patient Data Vitals - Most Recent: Last Vital Signs Temp 97.5 F 11/18/18 07:49 Pulse 66 11/18/18 07:49 Resp 16 11/18/18 07:49 BP 121/67 11/18/18 08:10 Pulse Ox 99 11/18/18 07:49 Weight - Most Recent: 84.822 kg I&O - Last 24 Hours: Intake & Output 11/17/18 11/18/18 11/18/18 22:59 06:59 14:59 Intake Total 844 1770 Output Total 1300 3100 Balance -456 -1330 Lab Results Last 24 Hrs: Laboratory Results - last 24 hr 11/17/18 11/17/18 11/17/18 Range/Units 11:36 16:39 21:13 Hgb (12.0-16.0) g/dL Hct (36.0-46.0) % Sodium (136-145) mmol/L Potassium (3.5-5.1) mmol/L Chloride (98-107) mmol/L Carbon Dioxide (21.0-32.0) mmol/L BUN (7.0-18.0) mg/dL Creatinine (0.6-1.0) mg/dL Est Cr Clr Drug Dosing mL/min Estimated GFR (MDRD) ml/min Glucose (74-106) mg/dL POC Glucose 151 H 203 H 235 H (60-110) mg/dL Calcium (8.5-10.1) mg/dL Magnesium (1.8-2.4) mg/dL 11/18/18 11/18/18 11/18/18 Range/Units 05:30 05:30 06:19 Hgb 11.5 L (12.0-16.0) g/dL Hct 35.1 L (36.0-46.0) % Sodium 141 (136-145) mmol/L Potassium 4.2 (3.5-5.1) mmol/L Chloride 107 (98-107) mmol/L Carbon Dioxide 24.6 (21.0-32.0) mmol/L BUN 9 (7.0-18.0) mg/dL Creatinine 0.6 (0.6-1.0) mg/dL Est Cr Clr Drug Dosing 93.64 mL/min Estimated GFR (MDRD) > 60.0 ml/min Glucose 205 H (74-106) mg/dL POC Glucose 200 H (60-110) mg/dL Calcium 9.1 (8.5-10.1) mg/dL Magnesium 1.8 (1.8-2.4) mg/dL Med Orders - Current: Current Medications Al Hydroxide/Mg Hydroxide (Mag-Al Plus) 30 ml PO Q4H PRN PRN Reason: Indigestion Aspirin (Aspirin) 325 mg PO BID [facility] Last Admin: 11/18/18 08:10 Dose: 325 mg Atorvastatin Calcium (Lipitor) 10 mg PO BEDTIME [facility] Last Admin: 11/17/18 20:07 Dose: 10 mg Bisacodyl (Dulcolax) 10 mg RECTAL DAILY PRN PRN Reason: Constipation Celecoxib (Celebrex) 200 mg PO BID [facility] Last Admin: 11/18/18 08:11 Dose: 200 mg Cephalexin (Keflex) 500 mg PO BID [facility] Stop: 11/25/18 09:01 Last Admin: 11/18/18 08:10 Dose: 500 mg Cyanocobalamin (Vitamin B12) 1,000 mcg PO DAILY [facility] Last Admin: 11/18/18 08:10 Dose: 1,000 mcg Diphenhydramine HCl (Benadryl) 25 - 50 mg PO Q6H PRN PRN Reason: Itching Docusate Sodium (Colace) 100 mg PO BID PRN PRN Reason: Constipation Famotidine (Pepcid) 40 mg IVPUSH ONARRIVE [facility] Last Admin: 11/17/18 07:20 Dose: 40 mg Famotidine (Pepcid) 40 mg PO DAILY [facility] Last Admin: 11/18/18 08:10 Dose: 40 mg Folic Acid (Folic Acid) 2.5 mg PO DAILY [facility] Last Admin: 11/18/18 08:11 Dose: 2.5 mg Acetaminophen 1,000 mg/ Premix 100 mls @ 400 mls/hr IV ONARRIVE [facility] Last Admin: 11/17/18 07:20 Dose: 400 mls/hr Cefazolin Sodium/Dextrose 2 gm (/ Premix) 50 mls @ 100 mls/hr IV ONCALL [facility] Ropivacaine 49.25 ml/Ketorolac Tromethamine 30 mg/Epinephrine HCl 0.5 mg/ Clonidine HCl 80 mcg/ Sodium Chloride 75 mls @ 50 mls/sec INJECT ASDIRECTED [facility] Lactated Ringer's (Ringers, Lactated) 1,000 mls @ 100 mls/hr IV ASDIRECTED [facility] Last Admin: 11/17/18 15:02 Dose: 100 mls/hr Insulin Aspart (Novolog) 0 unit SUBCUT TIDAC [facility]; Protocol Last Admin: 11/18/18 08:09 Dose: 2 units Ketorolac Tromethamine (Toradol) 30 mg IVPUSH ONARRIVE [facility] Last Admin: 11/17/18 20:14 Dose: 30 mg Lisinopril (Prinivil) 10 mg PO DAILY [facility] Last Admin: 11/18/18 08:10 Dose: 10 mg Morphine Sulfate (Morphine) 1 - 3 mg IVPUSH Q3H PRN PRN Reason: Pain Ondansetron HCl (Zofran) 4 mg IVPUSH Q6H PRN PRN Reason: Nausea/Vomiting Oxycodone/Acetaminophen (Percocet 325-5 Mg) 1 - 2 tab PO Q4H PRN PRN Reason: Pain Last Admin: 11/18/18 08:07 Dose: 2 tab Polyethylene Glycol (Miralax) 17 gm PO DAILY [facility] Last Admin: 11/18/18 08:11 Dose: 17 gm Pyridoxine HCl (Vitamin B6-Pyridoxine) 25 mg PO DAILY [facility] Last Admin: 11/18/18 08:12 Dose: 25 mg Scopolamine (Transderm-Scop) 1.5 mg TRDERM ONARRIVE [facility] Last Admin: 11/17/18 07:20 Dose: 1.5 mg Sodium Chloride (Saline Flush) 10 ml FLUSH ASDIRECTED PRN PRN Reason: Keep Vein Open Sodium Chloride (Saline Flush) 2.5 ml FLUSH ASDIRECTED PRN PRN Reason: Keep Vein Open Discontinued Medications Bupivacaine HCl (Sensorcaine-Mpf 0.5%) Confirm Administered Dose 10 ml .ROUTE .STK-MED ONE Stop: 11/17/18 07:20 Cefazolin Sodium/Dextrose (Ancef) Confirm Administered Dose 2 gm IV .STK-MED ONE Stop: 11/17/18 06:57 Famotidine (Pepcid) Confirm Administered Dose 40 mg .ROUTE .STK-MED ONE Stop: 11/17/18 06:45 Last Admin: 11/17/18 10:26 Dose: Not Given Fentanyl (Sublimaze) Confirm Administered Dose 100 mcg .ROUTE .STK-MED ONE Stop: 11/17/18 06:50 Tranexamic Acid 2,000 mg/ (Sodium Chloride) 120 mls @ 600 mls/hr IV ASDIRECTED ONE Stop: 11/17/18 08:11 Last Admin: 11/17/18 10:27 Dose: Not Given Acetaminophen (Ofirmev) Confirm Administered Dose 100 mls @ as directed IV .STK- MED ONE Stop: 11/17/18 06:43 Last Admin: 11/17/18 10:26 Dose: Not Given Lidocaine HCl (Xylocaine-Mpf 1%) Confirm Administered Dose 10 mls @ as directed .ROUTE .ST-MED ONE Stop: 11/17/18 07:20 Acetaminophen 1,000 mg/ Premix 100 mls @ 400 mls/hr IV Q6H [facility] Stop: 11/18/18 01:14 Last Admin: 11/18/18 01:32 Dose: 400 mls/hr Cefazolin Sodium/Dextrose 2 gm (/ Premix) 50 mls @ 100 mls/hr IV Q8H [facility] Stop: 11/18/18 00:29 Last Admin: 11/17/18 23:27 Dose: 100 mls/hr Magnesium Sulfate 2 gm/ Premix 50 mls @ 50 mls/hr IV ONETIME ONE Stop: 11/17/18 12:40 Last Admin: 11/17/18 11:51 Dose: 50 mls/hr Ketorolac Tromethamine (Toradol) Confirm Administered Dose 30 mg .ROUTE .STK- MED ONE Stop: 11/17/18 06:46 Last Admin: 11/17/18 10:27 Dose: Not Given Ketorolac Tromethamine (Toradol) 30 mg IVPUSH Q6H [facility] Stop: 11/18/18 05:00 Last Admin: 11/18/18 01:34 Dose: 30 mg Midazolam HCl (Versed 1 Mg/Ml) Confirm Administered Dose 4 mg .ROUTE .STK-MED ONE Stop: 11/17/18 06:50 Oxycodone HCl (Oxycodone) 5 - 10 mg PO Q4H PRN PRN Reason: Pain Stop: 11/18/18 08:00 Last Admin: 11/17/18 17:07 Dose: 10 mg Phenylephrine HCl (Phenylephrine In Ns 100 Mcg/Ml) Confirm Administered Dose 1 mg .ROUTE .STK-MED ONE Stop: 11/17/18 09:21 Propofol (Diprivan 20 Ml) Confirm Administered Dose 600 mg .ROUTE .STK-MED ONE Stop: 11/17/18 06:50 Propofol (Diprivan 20 Ml) Confirm Administered Dose 200 mg .ROUTE .STK-MED ONE Stop: 11/17/18 09:20 Scopolamine (Transderm-Scop) Confirm Administered Dose 1.5 mg .ROUTE .STK-MED ONE Stop: 11/17/18 06:44 Last Admin: 11/17/18 10:26 Dose: Not Given Tranexamic Acid (Cyklokapron) Confirm Administered Dose 2,000 mg .ROUTE .STK- MED ONE Stop: 11/17/18 06:59 - Exam Wound/Incisions: Dressing Dry and Intact General: Alert, Oriented Neck: Supple Lungs: Normal Respiratory Effort Cardiovascular: Regular Rate GI/Abdominal Exam: Soft Neurological: No New Focal Deficit Psy/Mental Status: Alert, Normal Affect, Normal Mood Physical Findings Comment:: Exam of LLE shows dressing intact. No calf TTP. AT/EHL/gastroc 5/5. Sensation intact. DP 2+. - Problem List & Annotations (1) S/P total knee arthroplasty SNOMED Code(s): 2513316054501, 792578305, 4038752253905 Code(s): Z96.659 - PRESENCE OF UNSPECIFIED ARTIFICIAL KNEE JOINT Status: Acute Current Visit: Yes Qualifiers: Laterality: left Qualified Code(s): Z96.652 - Presence of left artificial knee joint - Problem List Review Problem List Initiated/Reviewed/Updated: Yes - My Orders Last 24 Hours: Active Orders 24 hr Category Date Time Status [employer] Diet [DIET] Diet 11/17/18 Lunch Active HEMOGLOBIN/HEMATOCRIT,HH [HEME] DAILY Lab 11/19/18 06:00 Ordered Acetaminophen/oxyCODONE [Percocet 325-5 MG] Med 11/18/18 06:00 Active 1 - 2 tab PO Q4H PRN Aspirin Med 11/18/18 09:00 Active 325 mg PO BID Celecoxib [CeleBREX] Med 11/18/18 09:00 Active 200 mg PO BID Cyanocobalamin (Vitamin B12) [Vitamin B12] Med 11/18/18 09:00 Active 1,000 mcg PO DAILY Famotidine [Pepcid] Med 11/18/18 09:00 Active 40 mg PO DAILY Folic Acid Med 11/18/18 09:00 Active 2.5 mg PO DAILY Insulin Aspart [NovoLOG] Med 11/17/18 11:30 Active See Protocol SUBCUT TIDAC Lisinopril [Prinivil] Med 11/18/18 09:00 Active 10 mg PO DAILY Polyethylene Glycol 3350 [MiraLAX] Med 11/18/18 09:00 Active 17 gm PO DAILY Vitamin B6-pyridOXINE Med 11/18/18 09:00 Active 25 mg PO DAILY atorvaSTATin [Lipitor] Med 11/17/18 21:00 Active 10 mg PO BEDTIME cephALEXin [Keflex] Med 11/18/18 09:00 Active 500 mg PO BID Convert IV to Saline Lock [OM.PC] PRN Oth 11/18/18 09:45 Ordered Medication Orders Al Hydroxide/Mg Hydroxide (Mag-Al Plus) 30 ml PO Q4H PRN PRN Reason: Indigestion Aspirin (Aspirin) 325 mg PO BID [facility] Last Admin: 11/18/18 08:10 Dose: 325 mg Atorvastatin Calcium (Lipitor) 10 mg PO BEDTIME [facility] Last Admin: 11/17/18 20:07 Dose: 10 mg Bisacodyl (Dulcolax) 10 mg RECTAL DAILY PRN PRN Reason: Constipation Celecoxib (Celebrex) 200 mg PO BID [facility] Last Admin: 11/18/18 08:11 Dose: 200 mg Cephalexin (Keflex) 500 mg PO BID [facility] Stop: 11/25/18 09:01 Last Admin: 11/18/18 08:10 Dose: 500 mg Cyanocobalamin (Vitamin B12) 1,000 mcg PO DAILY [facility] Last Admin: 11/18/18 08:10 Dose: 1,000 mcg Diphenhydramine HCl (Benadryl) 25 - 50 mg PO Q6H PRN PRN Reason: Itching Docusate Sodium (Colace) 100 mg PO BID PRN PRN Reason: Constipation Famotidine (Pepcid) 40 mg IVPUSH ONARRIVE [facility] Last Admin: 11/17/18 07:20 Dose: 40 mg Famotidine (Pepcid) 40 mg PO DAILY [facility] Last Admin: 11/18/18 08:10 Dose: 40 mg Folic Acid (Folic Acid) 2.5 mg PO DAILY [facility] Last Admin: 11/18/18 08:11 Dose: 2.5 mg Acetaminophen 1,000 mg/ Premix 100 mls @ 400 mls/hr IV ONARRIVE [facility] Last Admin: 11/17/18 07:20 Dose: 400 mls/hr Cefazolin Sodium/Dextrose 2 gm (/ Premix) 50 mls @ 100 mls/hr IV ONCALL [facility] Ropivacaine 49.25 ml/Ketorolac Tromethamine 30 mg/Epinephrine HCl 0.5 mg/ Clonidine HCl 80 mcg/ Sodium Chloride 75 mls @ 50 mls/sec INJECT ASDIRECTED [facility] Lactated Ringer's (Ringers, Lactated) 1,000 mls @ 100 mls/hr IV ASDIRECTED [facility] Last Admin: 11/17/18 15:02 Dose: 100 mls/hr Infusion: 11/17/18 15:02 Dose: 100 mls/hr Admin: 11/17/18 13:56 Dose: 100 mls/hr Infusion: 11/17/18 13:56 Dose: 100 mls/hr Admin: 11/17/18 07:20 Dose: 100 mls/hr Insulin Aspart (Novolog) 0 unit SUBCUT TIDAC [facility]; Protocol Last Admin: 11/18/18 08:09 Dose: 2 units Admin: 11/17/18 17:08 Dose: 2 units Admin: 11/17/18 11:38 Dose: Ketorolac Tromethamine (Toradol) 30 mg IVPUSH ONARRIVE [facility] Last Admin: 11/17/18 20:14 Dose: 30 mg Lisinopril (Prinivil) 10 mg PO DAILY [facility] Last Admin: 11/18/18 08:10 Dose: 10 mg Morphine Sulfate (Morphine) 1 - 3 mg IVPUSH Q3H PRN PRN Reason: Pain Ondansetron HCl (Zofran) 4 mg IVPUSH Q6H PRN PRN Reason: Nausea/Vomiting Oxycodone/Acetaminophen (Percocet 325-5 Mg) 1 - 2 tab PO Q4H PRN PRN Reason: Pain Last Admin: 11/18/18 08:07 Dose: 2 tab Polyethylene Glycol (Miralax) 17 gm PO DAILY [place] Last Admin: 11/18/18 08:11 Dose: 17 gm Pyridoxine HCl (Vitamin B6-Pyridoxine) 25 mg PO DAILY [facility] Last Admin: 11/18/18 08:12 Dose: 25 mg Scopolamine (Transderm-Scop) 1.5 mg TRDERM ONARRIVE [facility] Last Admin: 11/17/18 07:20 Dose: 1.5 mg Sodium Chloride (Saline Flush) 10 ml FLUSH ASDIRECTED PRN PRN Reason: Keep Vein Open Sodium Chloride (Saline Flush) 2.5 ml FLUSH ASDIRECTED PRN PRN Reason: Keep Vein Open - Plan Plan (Free Text/Narrative):: 1. continue current pain management 2. continue PT 3. DVT prophylaxis: SCD/MICHELLE, ASA 4. Appreciate hospitalist assistance with DM management 5. hgb stable 6. plan discharge tomorrow if she continues to do well
[2018-11-18] MEDS: atorvaSTATin 10 MG Tab PO SCH (20:00)
[2018-11-19] MEDS: Acetaminophen/oxyCODONE 325-5 MG Tab PO PRN ×2 (04:50→09:12)
[2018-11-19 05:51] LABS: BLOOD UREA NITROGEN,BUN 14 mg/dL (7.0-18.0); CHLORIDE,CL 107 mmol/L (98-107); GLUCOSE RANDOM 219 mg/dL (74-106); POTASSIUM,K 4.6 mmol/L (3.5-5.1); SODIUM,NA 142 mmol/L (136-145)
--- NOTE | 2018-11-19 08:02 | PCM.SURGPN ---
- General Info Date of Service: 11/19/18 Date of Surgery/Procedure: 11/16/18 POD#: 2 Functional Status: Reports: Pain Controlled, Tolerating Diet, Ambulating, Urinating - Review of Systems General: Reports: No Symptoms Pulmonary: Reports: No Symptoms Cardiovascular: Reports: No Symptoms Gastrointestinal: Reports: No Symptoms Musculoskeletal: Reports: Leg Pain Systems Review Comment:: pt up to chair for breakfast tolerating PO intake well pain controlled with Percocet 5/325 doing well with PT ready for discharge this afternoon - ride arranged for noon - Patient Data Vitals - Most Recent: Last Vital Signs Temp 96.7 F 11/19/18 04:00 Pulse 76 11/19/18 04:00 Resp 14 11/19/18 04:00 BP 127/75 11/19/18 04:00 Pulse Ox 95 11/19/18 04:00 Weight - Most Recent: 84.822 kg I&O - Last 24 Hours: Intake & Output 11/18/18 11/19/18 11/19/18 22:59 06:59 14:59 Intake Total 1100 800 Output Total 500 Balance 600 800 Lab Results Last 24 Hrs: Laboratory Results - last 24 hr 11/18/18 11/18/18 11/18/18 Range/Units 11:51 16:05 20:55 Hgb (12.0-16.0) g/dL Hct (36.0-46.0) % Sodium (136-145) mmol/L Potassium (3.5-5.1) mmol/L Chloride (98-107) mmol/L Carbon Dioxide (21.0-32.0) mmol/L BUN (7.0-18.0) mg/dL Creatinine (0.6-1.0) mg/dL Est Cr Clr Drug Dosing mL/min Estimated GFR (MDRD) ml/min Glucose (74-106) mg/dL POC Glucose 195 H 221 H 272 H (60-110) mg/dL Calcium (8.5-10.1) mg/dL 11/19/18 11/19/18 11/19/18 Range/Units 05:25 05:25 06:00 Hgb 11.1 L (12.0-16.0) g/dL Hct 34.1 L (36.0-46.0) % Sodium 142 (136-145) mmol/L Potassium 4.6 (3.5-5.1) mmol/L Chloride 107 (98-107) mmol/L Carbon Dioxide 27.0 (21.0-32.0) mmol/L BUN 14 (7.0-18.0) mg/dL Creatinine 0.8 (0.6-1.0) mg/dL Est Cr Clr Drug Dosing 70.23 mL/min Estimated GFR (MDRD) > 60.0 ml/min Glucose 219 H (74-106) mg/dL POC Glucose 206 H (60-110) mg/dL Calcium 9.4 (8.5-10.1) mg/dL Med Orders - Current: Current Medications Al Hydroxide/Mg Hydroxide (Mag-Al Plus) 30 ml PO Q4H PRN PRN Reason: Indigestion Aspirin (Aspirin) 325 mg PO BID [facility] Last Admin: 11/18/18 20:00 Dose: 325 mg Atorvastatin Calcium (Lipitor) 10 mg PO BEDTIME [facility] Last Admin: 11/18/18 20:00 Dose: 10 mg Bisacodyl (Dulcolax) 10 mg RECTAL DAILY PRN PRN Reason: Constipation Celecoxib (Celebrex) 200 mg PO BID [facility] Last Admin: 11/18/18 20:01 Dose: 200 mg Cephalexin (Keflex) 500 mg PO BID [facility] Stop: 11/25/18 09:01 Last Admin: 11/18/18 20:00 Dose: 500 mg Cyanocobalamin (Vitamin B12) 1,000 mcg PO DAILY [facility] Last Admin: 11/18/18 08:10 Dose: 1,000 mcg Diphenhydramine HCl (Benadryl) 25 - 50 mg PO Q6H PRN PRN Reason: Itching Docusate Sodium (Colace) 100 mg PO BID PRN PRN Reason: Constipation Famotidine (Pepcid) 40 mg IVPUSH ONARRIVE [facility] Last Admin: 11/17/18 07:20 Dose: 40 mg Famotidine (Pepcid) 40 mg PO DAILY [facility] Last Admin: 11/18/18 08:10 Dose: 40 mg Folic Acid (Folic Acid) 2.5 mg PO DAILY [facility] Last Admin: 11/18/18 08:11 Dose: 2.5 mg Acetaminophen 1,000 mg/ Premix 100 mls @ 400 mls/hr IV ONARRIVE [facility] Last Admin: 11/17/18 07:20 Dose: 400 mls/hr Cefazolin Sodium/Dextrose 2 gm (/ Premix) 50 mls @ 100 mls/hr IV ONCALL [facility] Ropivacaine 49.25 ml/Ketorolac Tromethamine 30 mg/Epinephrine HCl 0.5 mg/ Clonidine HCl 80 mcg/ Sodium Chloride 75 mls @ 50 mls/sec INJECT ASDIRECTED [facility] Lactated Ringer's (Ringers, Lactated) 1,000 mls @ 100 mls/hr IV ASDIRECTED [facility] Last Admin: 11/17/18 15:02 Dose: 100 mls/hr Insulin Aspart (Novolog) 0 unit SUBCUT TIDAC [facility]; Protocol Last Admin: 11/18/18 17:40 Dose: 2 units Ketorolac Tromethamine (Toradol) 30 mg IVPUSH ONARRIVE [facility] Last Admin: 11/17/18 20:14 Dose: 30 mg Lisinopril (Prinivil) 10 mg PO DAILY [facility] Last Admin: 11/18/18 08:10 Dose: 10 mg Morphine Sulfate (Morphine) 1 - 3 mg IVPUSH Q3H PRN PRN Reason: Pain Ondansetron HCl (Zofran) 4 mg IVPUSH Q6H PRN PRN Reason: Nausea/Vomiting Oxycodone/Acetaminophen (Percocet 325-5 Mg) 1 - 2 tab PO Q4H PRN PRN Reason: Pain Last Admin: 11/19/18 04:50 Dose: 2 tab Polyethylene Glycol (Miralax) 17 gm PO DAILY [facility] Last Admin: 11/18/18 08:11 Dose: 17 gm Pyridoxine HCl (Vitamin B6-Pyridoxine) 25 mg PO DAILY [facility] Last Admin: 11/18/18 08:12 Dose: 25 mg Scopolamine (Transderm-Scop) 1.5 mg TRDERM ONARRIVE [facility] Last Admin: 11/17/18 07:20 Dose: 1.5 mg Sodium Chloride (Saline Flush) 10 ml FLUSH ASDIRECTED PRN PRN Reason: Keep Vein Open Sodium Chloride (Saline Flush) 2.5 ml FLUSH ASDIRECTED PRN PRN Reason: Keep Vein Open Discontinued Medications Bupivacaine HCl (Sensorcaine-Mpf 0.5%) Confirm Administered Dose 10 ml .ROUTE .STK-MED ONE Stop: 11/17/18 07:20 Cefazolin Sodium/Dextrose (Ancef) Confirm Administered Dose 2 gm IV .STK-MED ONE Stop: 11/17/18 06:57 Famotidine (Pepcid) Confirm Administered Dose 40 mg .ROUTE .STK-MED ONE Stop: 11/17/18 06:45 Last Admin: 11/17/18 10:26 Dose: Not Given Fentanyl (Sublimaze) Confirm Administered Dose 100 mcg .ROUTE .STK-MED ONE Stop: 11/17/18 06:50 Tranexamic Acid 2,000 mg/ (Sodium Chloride) 120 mls @ 600 mls/hr IV ASDIRECTED ONE Stop: 11/17/18 08:11 Last Admin: 11/17/18 10:27 Dose: Not Given Acetaminophen (Ofirmev) Confirm Administered Dose 100 mls @ as directed IV .STK- MED ONE Stop: 11/17/18 06:43 Last Admin: 11/17/18 10:26 Dose: Not Given Lidocaine HCl (Xylocaine-Mpf 1%) Confirm Administered Dose 10 mls @ as directed .ROUTE .STK-MED ONE Stop: 11/17/18 07:20 Acetaminophen 1,000 mg/ Premix 100 mls @ 400 mls/hr IV Q6H [facility] Stop: 11/18/18 01:14 Last Admin: 11/18/18 01:32 Dose: 400 mls/hr Cefazolin Sodium/Dextrose 2 gm (/ Premix) 50 mls @ 100 mls/hr IV Q8H [facility] Stop: 11/18/18 00:29 Last Admin: 11/17/18 23:27 Dose: 100 mls/hr Magnesium Sulfate 2 gm/ Premix 50 mls @ 50 mls/hr IV ONETIME ONE Stop: 11/17/18 12:40 Last Admin: 11/17/18 11:51 Dose: 50 mls/hr Ketorolac Tromethamine (Toradol) Confirm Administered Dose 30 mg .ROUTE .STK- MED ONE Stop: 11/17/18 06:46 Last Admin: 11/17/18 10:27 Dose: Not Given Ketorolac Tromethamine (Toradol) 30 mg IVPUSH Q6H [facility] Stop: 11/18/18 05:00 Last Admin: 11/18/18 01:34 Dose: 30 mg Midazolam HCl (Versed 1 Mg/Ml) Confirm Administered Dose 4 mg .ROUTE .STK-MED ONE Stop: 11/17/18 06:50 Oxycodone HCl (Oxycodone) 5 - 10 mg PO Q4H PRN PRN Reason: Pain Stop: 11/18/18 08:00 Last Admin: 11/17/18 17:07 Dose: 10 mg Phenylephrine HCl (Phenylephrine In Ns 100 Mcg/Ml) Confirm Administered Dose 1 mg .ROUTE .STK-MED ONE Stop: 11/17/18 09:21 Propofol (Diprivan 20 Ml) Confirm Administered Dose 600 mg .ROUTE .STK-MED ONE Stop: 11/17/18 06:50 Propofol (Diprivan 20 Ml) Confirm Administered Dose 200 mg .ROUTE .STK-MED ONE Stop: 11/17/18 09:20 Scopolamine (Transderm-Scop) Confirm Administered Dose 1.5 mg .ROUTE .STK-MED ONE Stop: 11/17/18 06:44 Last Admin: 11/17/18 10:26 Dose: Not Given Tranexamic Acid (Cyklokapron) Confirm Administered Dose 2,000 mg .ROUTE .STK- MED ONE Stop: 11/17/18 06:59 - Exam Wound/Incisions: Dressing Dry and Intact. No: Drainage, Erythema General: Alert, Oriented Cardiovascular: Regular Rate, Regular Rhythm Extremities: Other (exam LLE - at/ehl/gastroc 5/5, dp 2+, sensation intact distally) Physical Findings Comment:: vss, afeb hgb 11.1 - Problem List Review Problem List Initiated/Reviewed/Updated: Yes - My Orders Last 24 Hours: Active Orders 24 hr Category Date Time Status Ready for Discharge [RC] PER UNIT ROUTINE Care 11/19/18 07:55 Ordered Aspirin Med 11/18/18 09:00 Active 325 mg PO BID Celecoxib [CeleBREX] Med 11/18/18 09:00 Active 200 mg PO BID Cyanocobalamin (Vitamin B12) [Vitamin B12] Med 11/18/18 09:00 Active 1,000 mcg PO DAILY Famotidine [Pepcid] Med 11/18/18 09:00 Active 40 mg PO DAILY Folic Acid Med 11/18/18 09:00 Active 2.5 mg PO DAILY Lisinopril [Prinivil] Med 11/18/18 09:00 Active 10 mg PO DAILY Polyethylene Glycol 3350 [MiraLAX] Med 11/18/18 09:00 Active 17 gm PO DAILY Vitamin B6-pyridOXINE Med 11/18/18 09:00 Active 25 mg PO DAILY cephALEXin [Keflex] Med 11/18/18 09:00 Active 500 mg PO BID Convert IV to Saline Lock [OM.PC] PRN Oth 11/18/18 09:45 Ordered Medication Orders Al Hydroxide/Mg Hydroxide (Mag-Al Plus) 30 ml PO Q4H PRN PRN Reason: Indigestion Aspirin (Aspirin) 325 mg PO BID [facility] Last Admin: 11/18/18 20:00 Dose: 325 mg Admin: 11/18/18 08:10 Dose: 325 mg Atorvastatin Calcium (Lipitor) 10 mg PO BEDTIME [facility] Last Admin: 11/18/18 20:00 Dose: 10 mg Admin: 11/17/18 20:07 Dose: 10 mg Bisacodyl (Dulcolax) 10 mg RECTAL DAILY PRN PRN Reason: Constipation Celecoxib (Celebrex) 200 mg PO BID [facility] Last Admin: 11/18/18 20:01 Dose: 200 mg Admin: 11/18/18 08:11 Dose: 200 mg Cephalexin (Keflex) 500 mg PO BID [facility] Stop: 11/25/18 09:01 Last Admin: 11/18/18 20:00 Dose: 500 mg Admin: 11/18/18 08:10 Dose: 500 mg Cyanocobalamin (Vitamin B12) 1,000 mcg PO DAILY [facility] Last Admin: 11/18/18 08:10 Dose: 1,000 mcg Diphenhydramine HCl (Benadryl) 25 - 50 mg PO Q6H PRN PRN Reason: Itching Docusate Sodium (Colace) 100 mg PO BID PRN PRN Reason: Constipation Famotidine (Pepcid) 40 mg IVPUSH ONARRIVE [facility] Last Admin: 11/17/18 07:20 Dose: 40 mg Famotidine (Pepcid) 40 mg PO DAILY [facility] Last Admin: 11/18/18 08:10 Dose: 40 mg Folic Acid (Folic Acid) 2.5 mg PO DAILY [facility] Last Admin: 11/18/18 08:11 Dose: 2.5 mg Acetaminophen 1,000 mg/ Premix 100 mls @ 400 mls/hr IV ONARRIVE [facility] Last Admin: 11/17/18 07:20 Dose: 400 mls/hr Cefazolin Sodium/Dextrose 2 gm (/ Premix) 50 mls @ 100 mls/hr IV ONCALL [facility] Ropivacaine 49.25 ml/Ketorolac Tromethamine 30 mg/Epinephrine HCl 0.5 mg/ Clonidine HCl 80 mcg/ Sodium Chloride 75 mls @ 50 mls/sec INJECT ASDIRECTED [facility] Lactated Ringer's (Ringers, Lactated) 1,000 mls @ 100 mls/hr IV ASDIRECTED [facility] Last Admin: 11/17/18 15:02 Dose: 100 mls/hr Infusion: 11/17/18 15:02 Dose: 100 mls/hr Admin: 11/17/18 13:56 Dose: 100 mls/hr Infusion: 11/17/18 13:56 Dose: 100 mls/hr Admin: 11/17/18 07:20 Dose: 100 mls/hr Insulin Aspart (Novolog) 0 unit SUBCUT TIDAC [facility]; Protocol Last Admin: 11/18/18 17:40 Dose: 2 units Admin: 11/18/18 12:50 Dose: 1 units Admin: 11/18/18 08:09 Dose: 2 units Admin: 11/17/18 17:08 Dose: 2 units Admin: 11/17/18 11:38 Dose: Ketorolac Tromethamine (Toradol) 30 mg IVPUSH ONARRIVE [facility] Last Admin: 11/17/18 20:14 Dose: 30 mg Lisinopril (Prinivil) 10 mg PO DAILY [facility] Last Admin: 11/18/18 08:10 Dose: 10 mg Morphine Sulfate (Morphine) 1 - 3 mg IVPUSH Q3H PRN PRN Reason: Pain Ondansetron HCl (Zofran) 4 mg IVPUSH Q6H PRN PRN Reason: Nausea/Vomiting Oxycodone/Acetaminophen (Percocet 325-5 Mg) 1 - 2 tab PO Q4H PRN PRN Reason: Pain Last Admin: 11/19/18 04:50 Dose: 2 tab Admin: 11/18/18 22:43 Dose: 2 tab Admin: 11/18/18 17:43 Dose: 2 tab Admin: 11/18/18 12:49 Dose: 2 tab Admin: 11/18/18 08:07 Dose: 2 tab Polyethylene Glycol (Miralax) 17 gm PO DAILY [facility] Last Admin: 11/18/18 08:11 Dose: 17 gm Pyridoxine HCl (Vitamin B6-Pyridoxine) 25 mg PO DAILY [facility] Last Admin: 11/18/18 08:12 Dose: 25 mg Scopolamine (Transderm-Scop) 1.5 mg TRDERM ONARRIVE [facility] Last Admin: 11/17/18 07:20 Dose: 1.5 mg Sodium Chloride (Saline Flush) 10 ml FLUSH ASDIRECTED PRN PRN Reason: Keep Vein Open Sodium Chloride (Saline Flush) 2.5 ml FLUSH ASDIRECTED PRN PRN Reason: Keep Vein Open - Assessment Assessment (Free Text/Narrative):: POD#1 L TKA acute posthemorrhagic anemia - Plan Plan (Free Text/Narrative):: d/ch to home today d/ch medications written, instructions done medications reviewed with patient d/ch summary #[id number]
[2018-11-19] MEDS: Insulin Aspart 100 Units/ML 3 ML Pen SUBCUT SCH ×2 (08:21→12:04)
[2018-11-19] MEDS: Celecoxib 100 MG Cap PO SCH (08:26)
[2018-11-19] MEDS: Cyanocobalamin (Vitamin B12) 500 MCG Tab PO SCH (08:26)
[2018-11-19] MEDS: Famotidine 20 MG Tab PO SCH (08:26)
[2018-11-19] MEDS: Aspirin 325 MG Tab PO SCH (08:26)
[2018-11-19] MEDS: Folic Acid 1 MG Tab PO SCH (08:27)
[2018-11-19] MEDS: Lisinopril 10 MG Tab PO SCH (08:28)
[2018-11-19] MEDS: Cephalexin 500 MG Cap PO SCH (08:28)
[2018-11-19] MEDS: Polyethylene Glycol 3350 Powder 17 GM Packet PO SCH (08:29)
[2018-11-19] MEDS: Vitamin B6-pyridOXINE 50 MG Tab PO SCH (08:30)
--- NOTE | 2018-11-20 08:06 | DISCH ---
DATE OF DISCHARGE: 11/19/2018 PRIMARY CARE PHYSICIAN: Jaden PCP ADMITTING DIAGNOSIS: Degenerative joint disease, left knee, tricompartmental. OTHER MEDICAL DIAGNOSES: 1. Diabetes mellitus type 2. 2. Hypertension. 3. Obesity. DISCHARGE DIAGNOSES: 1. Degenerative joint disease, left knee, tricompartmental. 2. Diabetes mellitus type 2. 3. Hypertension. 4. Obesity. 5. Acute posthemorrhagic anemia. BRIEF HISTORY: Lauren is a 53-year-old female who has had progressive complaints of left knee pain. She has tried and failed conservative treatment. At that time, surgical treatment was recommended. On November 17, 2018, the patient underwent a left total knee arthroplasty done by Dr. Lizett Mcelroy. This was done under spinal anesthesia with sedation. Estimated blood loss was 50 mL. Tourniquet time was 49 minutes. There were no known complications. Upon completion of the procedure, the patient went to the PACU and subsequently to Med/Surg for postoperative care. HOSPITAL COURSE: Postoperatively, the patient did well. She received 2 doses of antibiotics postoperatively for a total of 24 hours of antibiotic coverage. She was also started on Keflex 500 mg by mouth twice daily when her IV antibiotics were completed. Her pain was controlled with a combination of oral and IV pain medications. Physical Therapy and the Hospitalist Service followed her through her hospital stay. Aspirin 325 mg was started on postoperative day #1 as DVT prophylaxis. Her vital signs were stable. She has been afebrile. Her hemoglobin on the morning of November 19 was 11.1. She is ambulating well with a wheeled walker. Her pain is slightly controlled with oral pain medications only. She is doing well with physical therapy. She feels comfortable with discharge to home later today. DISCHARGE MEDICATIONS: 1. Percocet 5/325. 2. Celebrex 200 mg. 3. Colace 100 mg. 4. MiraLAX. 5. Aspirin 325 mg. 6. Keflex 500 mg. DISCHARGE INSTRUCTIONS: Please refer to Dr. Mcelroy's postoperative total knee arthroplasty patient instructions. For complete medication reconciliation, please refer back to the patient's EHR. Should she have questions or concerns prior to her followup appointment, she has been advised to contact the clinic. ANYI GUSTAFSON /[phone]
== END 2018-11-19 12:45 | disposition home or self-care (01) | DRG 470 ==
LOC: MW.MS 06:36
PROVIDERS: ADMIT Orthopaedic Surgery; ATTEND Orthopaedic Surgery
PROC: 0SRD0J9 Replacement of Left Knee Joint with Synthetic Substitute, Cemented, Open Approach (ICD-10-PCS; principal; 2018-11-17)
DX: M17.12 Unilateral primary osteoarthritis, left knee (principal); D62 Acute posthemorrhagic anemia; I10 Essential (primary) hypertension; E78.00 Pure hypercholesterolemia, unspecified; E66.9 Obesity, unspecified; E11.9 Type 2 diabetes mellitus without complications; Z98.51 Tubal ligation status; Z79.899 Other long term (current) drug therapy; Z79.82 Long term (current) use of aspirin; Z79.84 Long term (current) use of oral hypoglycemic drugs; Z98.84 Bariatric surgery status; Z68.32 Body mass index [BMI] 32.0-32.9, adult
CPT/HCPCS: 01402; 36415; 73560-26-LT; 73560-LT; 80048; 82962; 83735; 85014; 85018; 85025; 86850; 86900; 86901; 88304; 88311; 97110-GP; 97116-GP; 97161-GP; A9270-GY; C1713; C1776; J0131; J0171; J0690; J0735; J1815-GY; J1885; J2001; J2250; J2370; J2704; J2795; J3010; J3475; J3490; J7050; J7120

== ENCOUNTER 2019-05-06 11:02 | Day surgery (SDC) | payer OTHER ==
[~2019-05-06 11:02] MED LIST changes: -Acetaminophen 1,000 MG in Premix Bag 1 BAG IV SCH; +Betamethasone Acetate/Betamethasone Sod Phosphate 30 MG/5 ML MDV EPIDUR ONE; -Famotidine 20 MG/2 ML SDV IVPUSH SCH; +Iopamidol 200-M 10 ML vial ITHECAL ONE; -Ketorolac 30 MG/ML SDV IVPUSH SCH; +Lidocaine 2% 5 ML SDV INJECT ONE; +Ropivacaine 0.5% 5 MG/ML 30 ML SDV INJECT ONE; -Ropivacaine 49.25 ML, Ketorolac 30 MG, EPINEPHrine 0.5 MG, cloNIDine 80 MCG in Sodium C... INJECT SCH; -Scopolamine 1.5 MG Transdermal Patch TRDERM SCH
--- NOTE | 2019-05-06 23:15 | OR ---
SURGEON: Angelica Porter D.O. DATE OF PROCEDURE: 05/06/2019 PRIMARY SURGEON: Angelica Porter D.O. ACCOUNT RESOLUTION SPECIALIST: OR staff present: 1. Adilia Park RN. 2. Asya Gamez RN. 3. RT Raquel. WOUND CLASS: I. PREOPERATIVE DIAGNOSES: 1. Lumbar degenerative disk disease. 2. Lumbar L5-S1 annular tear. 3. Chronic low back pain. 4. Left lower extremity S1 radiculopathy. POSTOPERATIVE DIAGNOSES: 1. Lumbar degenerative disk disease. 2. Lumbar L5-S1 annular tear. 3. Chronic low back pain. 4. Left lower extremity S1 radiculopathy. PROCEDURE PERFORMED: 1. Left S1 transforaminal epidural steroid injection. 2. Fluoroscopic guidance for needle placement. 3. Local with oral Valium for sedation. SCREENING QUESTIONS: The patient answered "no" to all of the following questions: 1. Are you allergic to iodine, Betadine or latex? 2. Do you have a bleeding disorder? 3. Do you have any joint replacements, heart valve replacements, or a pacemaker? 4. Are you allergic to anti-inflammatories or blood thinners? 5. Do you have any current local or systemic infections? DESCRIPTION OF PROCEDURE: The patient had the procedure thoroughly explained including risks, benefits and alternatives. Consent was signed in my clinic indicating understanding and willingness to proceed. The patient presented to [facility] where the patient was escorted to the dressing room to disrobe and change into a hospital gown. Preoperative vital signs were taken and stable. The patient reported that Valium was taken prior to the procedure. The patient was brought to the procedure room and placed in the prone position on the table. A pillow was placed under the abdomen in order to flatten the lumbar lordosis. The back was prepped with ChloraPrep and sterilely draped. All personnel in the operating room were dressed in appropriate attire including surgical scrubs, head and shoe covers. This was to ensure sterility while in the treatment room. During the time fluoroscopy was in use, all personnel in the operating room wore lead powell with thyroid collars. Sterile technique was used during the procedure. The fluoroscope was placed for the left S1 transforaminal epidural steroid injection. There was no sign of infection at the skin site for needle insertion. The skin was anesthetized with 2% lidocaine with a 27 gauge 1-1/2 inch needle. Then a 22 gauge 3-1/2 inch spinal needle, advanced to the left S1. Under direct fluoroscopic guidance needle position was verified in three views; AP, oblique and lateral, with 0.2 cubic centimeters increments of Isovue-200 dye. No intravascular flow pattern was observed under live fluoroscopy. Then 12 milligrams of Celestone was slowly injected after negative aspiration of heme, cerebrospinal fluid and no paresthesias were noted. The needle was cleared prior to removal from the skin. No adverse reactions were noted. The patient was brought to the recovery room awake and in good condition by my staff. The patient was monitored and discharge instructions were given after a brief stay in the recovery area. Both oral and written discharge and follow up instructions were given. The patient will follow up in the clinic in 3-4 weeks post procedure to evaluate the efficacy. The patient verbalized understanding including understanding of those signs and symptoms that would require emergency care and knows how to contact the office if there are any problems or questions in the meantime. PREOPERATIVE PAIN: 6/10. POSTOPERATIVE PAIN: 0/10. FOLLOWUP: Follow up in the Pain Clinic in 3 weeks. HOGLCHR / KAILEEL /[id number] ARIELA
== END 2019-05-06 13:00 | disposition home or self-care (01) ==
LOC: MW.SDS 11:02
PROVIDERS: ATTEND Anesthesiology
DX: G89.29 Other chronic pain (principal); M51.36 Other intervertebral disc degeneration, lumbar region; M51.17 Intervertebral disc disorders with radiculopathy, lumbosacral region; E11.42 Type 2 diabetes mellitus with diabetic polyneuropathy; E78.00 Pure hypercholesterolemia, unspecified; M51.26 Other intervertebral disc displacement, lumbar region; M17.0 Bilateral primary osteoarthritis of knee; M46.1 Sacroiliitis, not elsewhere classified; I10 Essential (primary) hypertension; Z91.048 Other nonmedicinal substance allergy status; Z79.899 Other long term (current) drug therapy; Z79.84 Long term (current) use of oral hypoglycemic drugs
CPT/HCPCS: 64483; 82962; J0702; 62323